=== PATIENT | female | born 1985 | race Caucasian/White ===

== ENCOUNTER 2017-12-27 16:10 | Inpatient (IN) | payer MEDICAID ==
[~2017-12-27] VITALS: Ht 167.6 cm; Wt 91.7 kg
[2017-12-27] MEDS ORDERED: HALOPERIDOL 5 MG TABLET PO PRN (17:15)
[2017-12-27] MEDS ORDERED: ZOLPIDEM TARTRATE 10 MG TABLET PO PRN (17:15)
[2017-12-27] MEDS ORDERED: LORazepam 2 MG TABLET PO PRN (17:15)
[2017-12-27] MEDS ORDERED: INFLUENZA VIRUS VACCINE QVS 2017-18 (3YR+)/PF 60 MCG/0.5 ML SYRINGE IM ONE (17:30)
[2017-12-27] MEDS ORDERED: ACETAMINOPHEN 325 MG TABLET PO PRN ×2 (19:00→21:30)
[2017-12-27 19:26] VITALS: BP 135/80
[2017-12-28 00:48] VITALS: BP 130/76
[2017-12-28 08:40] VITALS: BP 130/79
[2017-12-28 08:50] LABS: BASOPHILS % (AUTO) 0.6 % (0.0-2.0); EOSINOPHILS % (AUTO) 3.7 % (1.0-6.0); HEMATOCRIT 39.9 % (36-46); HEMOGLOBIN 13.5 g/dL (12.0-16.0); LYMPHOCYTES # (AUTO) 1.9 K/uL (1.0-4.8); LYMPHOCYTES % (AUTO) 21.5 % (22.0-44.0); MEAN CORPUSCULAR HEMOGLOBIN 31.3 pg (26.0-34.0); MEAN CORPUSCULAR HGB CONC 33.8 G/dL (31.0-37.0); MEAN CORPUSCULAR VOLUME 93 fL (80-100); MONOCYTES # (AUTO) 0.6 K/uL (0.1-1.0); MONOCYTES % (AUTO) 7.2 % (2.0-9.0); PLATELET COUNT (AUTO) 307 K/uL (150-450); RED BLOOD CELL COUNT(AUTO) 4.31 MIL/uL (4.00-5.20); RED CELL DISTRIBUTION WIDTH 13.1 % (11.5-14.5)
[2017-12-28 08:58] LABS: HEMOGLOBIN A1C 4.7 % (4.5-6.2)
[2017-12-28 09:22] LABS: ALANINE AMINOTRANSFERASE 38 U/L (12-78); ALBUMIN 3.3 g/dL (3.4-5.0); ALKALINE PHOSPHATASE 70 U/L (46-116); ANION GAP 5 mmol/L (8-16); ASPARTATE AMINOTRANSFERASE 15 U/L (15-37); BILIRUBIN,TOTAL 0.5 mg/dL (0.1-1.0); CALCIUM, TOTAL 8.5 mg/dL (8.8-10.5); CARBON DIOXIDE 28 mmol/L (22-29); CHLORIDE 105 mmol/L (98-107); CHOL/HDL RATIO 3.3 (3.9-5.7); CHOLESTEROL 130 mg/dL (131-200); CREATININE 0.89 mg/dL (0.60-1.30); FREE T4 (FREE THYROXINE) 0.94 ng/dL (0.76-1.46); GLOMERULAR FILTR. RATE CALC > 60 mL/min (>60); GLUCOSE,RANDOM 83 mg/dL (70-110); HCG,QUANTITATIVE < 1 mIU/mL (0-6); HDL CHOLESTEROL 39 mg/dL (40-60); LDL CHOL (CALC.) 71 mg/dL (0-130); POTASSIUM 3.5 mmol/L (3.5-5.1); SODIUM SERUM 138 mmol/L (136-145); THYROID STIMULATING HORMONE 0.14 uIU/mL (0.36-3.74); TOTAL PROTEIN, SERUM 7.1 g/dL (6.4-8.2); TRIGLYCERIDES 100 mg/dL (15-150); UREA NITROGEN, BLOOD 14 mg/dL (7-18)
[2017-12-28 16:00] VITALS: BP 120/88
[2017-12-28] MEDS: RisperiDONE 0.5 MG TABLET PO SCH (17:26)
[2017-12-29 06:39] VITALS: BP 124/66
[2017-12-29] MEDS ORDERED: ACETAMINOPHEN 325 MG TABLET PO PRN (07:00)
[2017-12-29] MEDS ORDERED: IBUPROFEN 400 MG TABLET PO PRN (07:00)
[2017-12-29 08:34] VITALS: BP 112/72
[2017-12-29] MEDS: RisperiDONE 0.5 MG TABLET PO SCH ×2 (09:19→16:23)
[2017-12-29 13:23] VITALS: BP 120/70
[2017-12-29 16:23] VITALS: BP 121/71
[2017-12-30 06:47] VITALS: BP 130/86
[2017-12-30 08:48] VITALS: BP 119/77
[2017-12-30] MEDS: RisperiDONE 0.5 MG TABLET PO SCH ×2 (09:01→16:15)
[2017-12-30 16:11] VITALS: BP 121/71
[2017-12-31 01:20] VITALS: BP 121/76
[2017-12-31 08:21] VITALS: BP 104/65
[2017-12-31] MEDS ORDERED: RISP1 PO (08:28)
[2017-12-31] MEDS: RisperiDONE 0.5 MG TABLET PO SCH (08:45)
== END 2017-12-31 10:37 | disposition home or self-care (01) | DRG 754 ==
LOC: B2S 17:12
PROVIDERS: ADMIT Psychiatry & Neurology Psychiatry; ATTEND Psychiatry & Neurology Psychiatry
DX: F32.9 Major depressive disorder, single episode, unspecified (principal); E44.0 Moderate protein-calorie malnutrition; F22 Delusional disorders; F10.10 Alcohol abuse, uncomplicated; F41.9 Anxiety disorder, unspecified; F15.10 Other stimulant abuse, uncomplicated; G47.00 Insomnia, unspecified; Z28.21 Immunization not carried out because of patient refusal; Z88.0 Allergy status to penicillin; Z71.41 Alcohol abuse counseling and surveillance of alcoholic; Z71.51 Drug abuse counseling and surveillance of drug abuser; Z68.32 Body mass index [BMI] 32.0-32.9, adult
CPT/HCPCS: 83036; 84439; 84443